=== PATIENT | female | born 1985 | race Caucasian/White ===

== ENCOUNTER 2016-10-28 06:50 | Observation (INO) | payer MEDICAID ==
[2016-10-28] MEDS ORDERED: Oxytocin 10 UNIT in Sodium Chloride 0.9% 1,000 ML IV SCH (09:00)
[2016-10-28] MEDS ORDERED: Lactated Ringers 1,000 ML IV SCH (09:00)
--- NOTE | 2016-10-28 09:14 | PCM.SN ---
- Free Text/Narrative Note: subjective: Maternal- well-being remain reassuring. No rupture of membranes. Blood pressures improved. Tolerating uterine contractions. No vaginal bleeding. No headaches chest pain or shortness of breath. Up and ambulating. Urinating. Objective: Vitals reviewed Ord: 2-4 minutes irregular lasting 30-40 seconds mild EFM: 120s to 130s, reactive, moderate variability, no decelerations. Cervical exam: Deferred Pitocin: 6 mU/m Assessment: Pitocin induction-currently nonlabored. Maternal- well-being remain reassuring. Plan: Continue to increase Pitocin to affect a regular contraction pattern in terms of strength, duration and ability to induce labor.
[2016-10-28] MEDS ORDERED: Zolpidem 5 MG Tab PO PRN (09:16)
[2016-10-28] MEDS ORDERED: Ondansetron 4 MG/2 ML SDV IV PRN (09:16)
[2016-10-28] MEDS ORDERED: Nalbuphine 10 MG/1 ML Vial IM PRN (09:16)
--- NOTE | 2016-10-28 10:42 | US ---
INDICATION: History of preeclampsia, need presentation and APRIL. OB ULTRASOUND LIMITED: Multiple ultrasonic images were obtained 10/28/2016, and compared with 10/09/2016, revealing a normal amount of amniotic fluid with the single fetus lying cephalic in presentation, spine on the maternal left. Placenta is posterior, fundal, without evidence of previa. Regular heart rate of 130 BPM was noted. No adnexal mass lesions or free fluid collections were demonstrated. Maternal ovaries were not visualized. APRIL was 12.28. No evidence of a nuchal cord was noted. IMPRESSION: Cephalic presentation with adequate amniotic fluid. No previa. MTDD
[2016-10-28 15:29] VITALS: BP 147/69
--- NOTE | 2016-12-01 18:18 | PCM.LDHP ---
L&D History of Present Illness - General Date of Service: 10/28/16 Admit Problem/Dx: Patient Status Order with Admit Dx/Problem 10/28/16 07:04 Admission Status [Patient Status] [ADT] Routine Patient Status: Refer to Observation Admission Diagnosis/Problem: Reason for Admit: hx of preeclampsia Nurse Unit Type: Labor and Delivery Admitting Physician: Ashli Eisenberg Attending Physician: Ashli Eisenberg Admission Diagnosis/Problem Admission Diagnosis/Problem - History of Present Illness Present Illness Comments:: Patient is a 31-year-old at 39+ weeks via LMP: 01/27/2016; INO to 11/02/2016 and consistent survey with a history of preeclampsia in prior and elevating blood pressures, increasing excessive weight gain and prior polyhydramnios. Cervix is been deemed favorable and she is being admitted for trial of labor induction via Pitocin and blood pressure monitoring along with tolerance to uterine contractions. She has had no leaking fluids, denies persistent headache, denies visual disturbance, nausea or vomiting, fevers or chills, vaginal bleeding, decreased movement, flank pain or dysuria, worsening peripheral edema, increased shortness of breath, palpitations, no sore throat or difficulty chewing and swallowing. She has had some RIGHT upper quadrant pain. Recent PIH labs and help syndrome labs were negative. She is GBS negative. All prior deliveries were vaginal at 40 weeks gestation. labs have been reviewed and are in the medical record. She is blood group O positive, rubella immune, negative for HIV, hepatitis C, RPR, hep B surface antigen, GC chlamydia, or gestational diabetes. Prior ultrasounds reviewed. She has received her flu vaccine and Tdap during this . Care: Dr. Ashli Eisenberg M.D.-[facility] - Related Data Allergies/Adverse Reactions: Allergies Allergy/AdvReac Type Severity Reaction Status Date / Time No Known Allergies Allergy Verified 11/05/16 14:25 Home Medications: Home Meds Albuterol [Proventil HFA] 1 - 2 puff INH DAILY PRN 10/28/16 [History] Vit No.129/Iron/FA [ One Daily Tablet] 1 each PO DAILY [History] Past Medical History Respiratory History: Reports: Asthma [employer] History: Reports: : 4 Para: 3 Psychiatric History: Reports: Anxiety Endocrine/Metabolic History: Reports: Obesity/BMI 30+ - Infectious Disease History Infectious Disease History: Reports: Chicken pox - Past Surgical History Respiratory Surgical History: Reports: None Endocrine Surgical History: Reports: None Social & Family History - Family History HEENT: Reports: Other (see below) Other HEENT Family History: father has Sjogren's syndrome OBGYN: Reports: , Other (see below) Other OBGYN Family History: sister had child with ancephalopathy that Musculoskeletal: Reports: RA - Tobacco Use Smoking Status *Q: Former Smoker Years of Tobacco use: 20 Packs/Tins Daily: 1 Used Tobacco, but Quit: Yes Month Tobacco Last Used: march 2007 Second Hand Smoke Exposure: Yes - Caffeine Use Caffeine Use: Reports: None - Recreational Drug Use Recreational Drug Use: No - Living Situation & Occupation Living situation: Reports: , with spouse, with family Occupation: employed H&P Review of Systems - Review of Systems: Review Of Systems: ROS reveals no pertinent complaints other than HPI. L&D Exam - Exam Exam: See Below - Vital Signs Vital Signs: Last Vital Signs Temp 98.1 F 10/28/16 11:30 Pulse 81 10/28/16 15:00 Resp 20 10/28/16 15:00 BP 147/69 H 10/28/16 15:00 Pulse Ox 100 10/28/16 15:00 Weight: 110.223 kg - OB Specific Contraction Duration (sec): 40-60 Contraction Frequency (min): 2-4 Contraction Intensity: Moderate movement: active heart tones: present heart tones per min: 130 Heart Rate (FHR) Variability: Moderate (6-25 bmp) Presentation: Vertex Estimated Weight: 7 - Soriano Score Soriano Score Cervix Position: Posterior Soriano Score Consistency: Soft Soriano Score Effacement: 51-70% Soriano Score Dilation: 3-4 cm Soriano Score Infant's Station: -2 Soriano Score Total: 7 - Exam General: alert HEENT: Conjunctiva clear, Mucosa moist & pink, Pupils equal Neck: supple, trachea midline, full range of motion Lungs: Clear to auscultation, Normal respiratory effort Cardiovascular: regular rate, regular rhythm, normal S1, normal S2 Abdomen: other (gravid. palpable movement) Genitourinary: Other (see above: membranes intact.) Back Exam: normal inspection. No: vertebral tenderness Extremities: edema. No: calf tenderness (1+) - Patient Data Result Diagrams: 10/28/16 08:16 Imaging Impressions last 24 hrs: US: vtx, normal APRIL,. Problem List Initiated/Reviewed/Updated: Yes Assessment/Plan Comment:: Assessment: 1. 31-year-old at 39+ weeks gestation 2. History polyhydramnios during this 3. Elevating blood pressure, weight and edema with history of preeclampsia in prior 4. Favorable cervix for induction 5. Blood group O+ 6. GBS negative 7. Reactive NST Plan: 1. Trial of induction with Pitocin. Patient is nothing by mouth status. maternal well-being reassuring. Blood pressure is elevated but we'll continue to monitor with intervention is necessary. Routine labs. Have discussed with patient and her that should we not be able to induce labor and maternal- well-being remains reassuring and membranes intact, we' ll discontinue trial and continue the . They are in agreement to the above plan of care all questions are answered and we'll proceed as follows. Total time: 40 minutes with greater than 50% spent [id number] reviewing her history, ultrasound, monitoring strip, process of induction, favorability of cervix, risk associated with induction and the potential for failed induction.
--- NOTE | 2016-12-01 19:05 | PCM.SN ---
- Free Text/Narrative Note: Subjective: Maternal- well-being remain reassuring. No rupture of membranes. Blood pressures improved. Tolerating uterine contractions. No vaginal bleeding. No headaches chest pain or shortness of breath. Up and ambulating. Urinating. Objective: Vitals reviewed [place]: 2-4 minutes irregular lasting 30-40 seconds mild EFM: 120s to 130s, reactive, moderate variability, no decelerations. Cervical exam: 4cm/posterior/intact/-2/vtx/50% Pitocin: 9 mU/m Assessment: Pitocin induction-currently not in labor. Maternal- well-being remain reassuring. Plan: Continue to increase Pitocin to affect a regular contraction pattern in terms of strength, duration and ability to induce labor.
--- NOTE | 2016-12-01 19:12 | PCM.SN ---
- Free Text/Narrative Note: Subjective: Maternal- well-being remain reassuring. No rupture of membranes. Blood pressures remain appropriate. Tolerating uterine contractions. No vaginal bleeding. No headaches chest pain or shortness of breath. Up and ambulating. Urinating. Objective: Vitals reviewed [place]: 2-4 minutes regular lasting 30-40 seconds mild-moderate EFM: 130s, reactive, moderate variability, no decelerations. Cervical exam: 4cm/mid/intact/-2/vtx/75% Pitocin: 19 mU/m Assessment: Failed induction of labor. Maternal- well-being remain reassuring. Plan: Discussed this with the parents. As both mother and baby tolerated uterine contractions without any evidence of placental insufficiency, escalating blood pressure, decreased urine output or rupture of membranes I recommend we continue the with biweekly NSTs and if not delivered by 41 weeks we' ll admit for delivery. They both agree with the above plan of care and I'll see them in the clinic.
--- NOTE | 2016-12-01 19:20 | PCM.DCSUM1 ---
Discharge Summary - Hospital Course Free Text/Narrative:: Patient is a 31-year-old at 39+ weeks via LMP: 01/27/2016; INO to 11/02/2016 and consistent survey with a history of preeclampsia in prior and elevating blood pressures, increasing excessive weight gain and prior polyhydramnios. Cervix is been deemed favorable and she was admitted for trial of labor induction via Pitocin and blood pressure monitoring along with tolerance to uterine contractions. Pitocin induction was started and titrated up to 19 mU/m over the course of 6 hours without cervical change, consistent labor pattern, rupture of membranes or indications to proceed. Maternal- well-being remained reassuring throughout the trial and thus the decision was made to stop the Pitocin, continue the and await spontaneous labor with biweekly NSTs and clinical follow-up until 41 weeks gestation at which point she will present for delivery. Review of systems: At time of discharge, she had no leaking fluids, denied persistent headache, denied visual disturbance, nausea or vomiting, fevers or chills, vaginal bleeding, decreased movement, flank pain or dysuria, worsening peripheral edema, increased shortness of breath, palpitations, no sore throat or difficulty chewing and swallowing. She has had some RIGHT upper quadrant seemed better. labs had been reviewed and are in the medical record. She is blood group O positive, rubella immune, negative for HIV, hepatitis C, RPR, hep B surface antigen, GC chlamydia, or gestational diabetes. Prior ultrasounds reviewed. She has received her flu vaccine and Tdap during this . Care: Dr. Ashli Eisenberg M.D.-[facility] - Discharge Data Discharge Date: 10/28/16 Discharge Disposition: Home, Self-Care 01 Condition: Good - Patient Summary/Data Complications: none - Patient Instructions Diet: Low Sodium, Drink 8-10+ Glasses/Day Activity: As Tolerated Showering/Bathing: May Shower, No Tub Bathing/Swimming Notify Provider of: Fever, Increased Pain, Swelling and Redness, Drainage, Nausea and/or Vomiting - Discharge Plan Home Medications: Home Meds Albuterol [Proventil HFA] 1 - 2 puff INH DAILY PRN 10/28/16 [History] Vit No.129/Iron/FA [ One Daily Tablet] 1 each PO DAILY [History] Referrals: Ashli Eisenberg MD [Primary Care Provider] - (as scheduled) - Discharge Summary/Plan Comment DC Time >30 min.: Yes Discharge Summary/Plan Comment: Problem list: 1. 31-year-old at 39+ weeks gestation 2. History polyhydramnios during this 3. Elevating blood pressure, weight and edema with history of preeclampsia in prior 4. Failed induction 5. Blood group O+ 6. GBS negative 7. Reactive NST - General Info Subjective Update: See above. - Patient Data Vitals - Most Recent: Last Vital Signs Temp 98.1 F 10/28/16 11:30 Pulse 81 10/28/16 15:00 Resp 20 10/28/16 15:00 BP 147/69 H 10/28/16 15:00 Pulse Ox 100 10/28/16 15:00 bp during contraction. prior 118/70s. Weight - Most Recent: 110.223 kg Lab Results - Last 24 hrs: Laboratory Tests 10/28/16 Range/Units 08:16 WBC 7.9 (4.5-12.0) X10-3/uL RBC 4.22 (3.23-5.20) x10(6)uL Hgb 12.0 (11.5-15.5) g/dL Hct 36.0 (30.0-51.3) % MCV 85.2 (80-96) fL MCH 28.3 (27.7-33.6) pg MCHC 33.2 (32.2-35.4) g/dL RDW 13.0 (11.5-15.5) % Plt Count 185 (125-369) X10(3)uL MPV 7.9 (7.4-10.4) fL Neut % (Auto) 73.1 (46-82) % Lymph % (Auto) 20.2 (13-37) % [place] % (Auto) 5.9 (4-12) % Eos % (Auto) 1 (1.0-5.0) % Baso % (Auto) 0 (0-2) % Neut # 5.8 (1.6-8.3) # Lymph # 1.6 (0.6-5.0) # [place] # 0.5 (0.0-1.3) # Eos # 0.0 (0.0-0.8) # Baso # 0.0 (0.0-0.2) # Med Orders - Current: Current Medications Discontinued Medications Oxytocin 10 unit/ Sodium (Chloride) 1,001 mls @ 12.01 mls/hr IV TITRATE ALICIA; 2 MUNITS/MIN PRN Reason: Protocol Last Titration: 10/28/16 14:25 Dose: 17 munits/min, 102.1 mls/hr Lactated Ringer's (Ringers, Lactated) 1,000 mls @ 75 mls/hr IV ASDIRECTED ALICIA Last Admin: 10/28/16 09:29 Dose: 75 mls/hr Nalbuphine HCl (Nubain) 10 mg IM Q3H PRN PRN Reason: Pain Ondansetron HCl (Zofran) 4 mg IV Q4H PRN PRN Reason: Nausea/Vomiting Zolpidem Tartrate (Ambien) 5 mg PO BEDTIME PRN PRN Reason: Insomnia Stop: 10/28/16 21:01 - Exam General: Reports: alert HEENT: Reports: Pupils equal, Mucous membr. moist/pink. Denies: Scleral icterus Neck: Reports: supple Lungs: Reports: Clear to auscultation, Normal respiratory effort Cardiovascular: Reports: regular rate, regular rhythm Abdomen: Reports: no tenderness, other (palpable movement. vtx). Denies: guarding, CVA tenderness (Female) Exam: Other (4cm/75%/intact/-2/mid/vtx) Back Exam: Reports: normal inspection Extremities: Reports: no tenderness/swelling, edema (1+) Skin: Reports: warm, dry, intact Neurological: Reports: no new focal deficit, reflexes equal bilateral Psy/Mental Status: Reports: normal affect, normal mood. Denies: depressed *Q Meaningful Use (DIS) - VTE *Q VTE Criteria *Q: - Stroke *Q Stroke Criteria *Q: - AMI *Q AMI Criteria *Q:
== END 2016-10-28 15:15 | disposition home or self-care (01) ==
LOC: FB.OBCHECK 06:50 → FB.OB 06:52 → INTOOBSV 07:04
PROVIDERS: ADMIT Family Medicine; ATTEND Family Medicine
DX: O14.93 Unspecified pre-eclampsia, third trimester (principal); O61.9 Failed induction of labor, unspecified; Z3A.01 Less than 8 weeks gestation of pregnancy; F41.9 Anxiety disorder, unspecified; J45.909 Unspecified asthma, uncomplicated; Z79.899 Other long term (current) drug therapy; Z87.891 Personal history of nicotine dependence
CPT/HCPCS: 36415; 76815; 85025; J2590; J7040; J7120; 96365; 96366; G0378